=== PATIENT | female | born 1960 | race Hispanic/Latino ===

== ENCOUNTER 2017-10-31 20:54 | Emergency (ER) | payer OTHER ==
[2017-10-31 22:31] LABS: BASOPHILS % (AUTO) 0.8 % (0.0-5.0); EOSINOPHILS % (AUTO) 2.3 % (0.0-8.0); HEMATOCRIT 31.8 % (36-48); LYMPHOCYTES % (AUTO) 33.3 % (21.0-51.0); MEAN CORPUSCULAR HEMOGLOBIN 29.3 pg (27.0-33.0); MEAN CORPUSCULAR HGB CONC 34.7 g/dL (32.0-36.0); MEAN CORPUSCULAR VOLUME 84.7 fL (79-99); MONOCYTES % (AUTO) 8.3 % (3.0-13.0); NEUTROPHILS % (AUTO) 55.3 % (40.0-77.0); PLATELET COUNT (AUTO) 284 K/uL (130-400); RED BLOOD CELL COUNT(AUTO) 3.76 MIL/uL (4.00-5.50); RED CELL DISTRIBUTION WIDTH 13.4 % (11.0-15.5); WHITE BLOOD COUNT (AUTO) 8.7 K/uL (4.8-10.8)
[2017-10-31 22:37] LABS: CREATININE 0.6 mg/dL (0.5-1.5); POTASSIUM 3.7 mmol/L (3.5-5.1)
[2017-10-31 22:39] LABS: INR 0.98 (0.85-1.15); PARTIAL THROMBOPLASTIN TIME 28.4 SEC (26.3-35.5); PROTHROMBIN TIME 10.3 SEC (9.6-11.6)
[2017-10-31 22:42] LABS: ALBUMIN 3.8 g/dL (3.5-5.0); BILIRUBIN,TOTAL 0.2 mg/dL (0.2-1.0); TOTAL PROTEIN, SERUM 8.5 g/dL (6.0-8.3)
[2017-10-31] MEDS ORDERED: AZITHROMYCIN 250 MG TABLET PO ONE (23:28)
== END 2017-10-31 23:36 | disposition home or self-care (01) ==
LOC: EDH 20:54
DX: R04.2 Hemoptysis (principal); J84.10 Pulmonary fibrosis, unspecified; M34.9 Systemic sclerosis, unspecified; Z98.890 Other specified postprocedural states
CPT/HCPCS: 36415; 71046; 80053; 85025; 85610; 85730

== ENCOUNTER → 2018-01-11 | Outpatient (CLI) | payer OTHER | END | disposition home or self-care (01) | LOC: RAH 09:51 | PROVIDERS: ATTEND Family Medicine | DX: Z12.31 Encounter for screening mammogram for malignant neoplasm of breast (principal) | CPT/HCPCS: 77067 ==

== ENCOUNTER → 2019-02-01 | Outpatient (CLI) | payer OTHER | END | disposition home or self-care (01) | LOC: RAH 09:43 | PROVIDERS: ATTEND Family Medicine | DX: N63.20 Unspecified lump in the left breast, unspecified quadrant (principal) | CPT/HCPCS: 76641; 77066 ==

== ENCOUNTER → 2019-06-06 | Outpatient (CLI) | payer OTHER | END | disposition home or self-care (01) | LOC: RAH 10:12 | PROVIDERS: ATTEND Internal Medicine | DX: K21.0 Gastro-esophageal reflux disease with esophagitis (principal); K22.8 Other specified diseases of esophagus | CPT/HCPCS: 74240 ==

== ENCOUNTER → 2020-01-26 | Outpatient (CLI) | payer OTHER | END | disposition home or self-care (01) | LOC: RAH 13:07 | PROVIDERS: ATTEND Internal Medicine Critical Care Medicine | DX: J84.10 Pulmonary fibrosis, unspecified (principal); J47.9 Bronchiectasis, uncomplicated ==

== ENCOUNTER → 2020-02-06 | Outpatient (CLI) | payer OTHER | END | disposition home or self-care (01) | LOC: RAH 09:46 | PROVIDERS: ATTEND Obstetrics & Gynecology | DX: Z12.31 Encounter for screening mammogram for malignant neoplasm of breast (principal) | CPT/HCPCS: 77067 ==

== ENCOUNTER → 2020-02-22 | Outpatient (CLI) | payer OTHER | END | disposition home or self-care (01) | LOC: SHCH 12:16 | PROVIDERS: ATTEND Internal Medicine Cardiovascular Disease | DX: I27.23 Pulmonary hypertension due to lung diseases and hypoxia (principal); R06.9 Unspecified abnormalities of breathing | CPT/HCPCS: 93306; 93356 ==

== ENCOUNTER → 2020-03-29 | Outpatient (CLI) | payer OTHER ==
[~2020-03-29] MED LIST: REGADENOSON 0.4 MG/5 ML PF SYG IVP SCH
== END | disposition home or self-care (01) ==
LOC: SHCH 07:47
PROVIDERS: ATTEND Internal Medicine Cardiovascular Disease
DX: R93.1 Abnormal findings on diagnostic imaging of heart and coronary circulation (principal); R06.00 Dyspnea, unspecified; R53.83 Other fatigue; R94.31 Abnormal electrocardiogram [ECG] [EKG]
CPT/HCPCS: 78452; 93017; 96374; A9500 ×2; J2785

== ENCOUNTER → 2020-05-14 | Outpatient (CLI) | payer OTHER | END | disposition home or self-care (01) | LOC: RAH 09:33 | PROVIDERS: ATTEND Internal Medicine | DX: K21.9 Gastro-esophageal reflux disease without esophagitis (principal); K22.9 Disease of esophagus, unspecified; K44.9 Diaphragmatic hernia without obstruction or gangrene | CPT/HCPCS: 74240 ==

== ENCOUNTER → 2020-06-06 | Outpatient (CLI) | payer OTHER ==
[2020-06-08 16:10] LABS: ALPHA-1-ANTITRYPSIN 157 mg/dL (101-187)
== END | disposition home or self-care (01) ==
LOC: LAB 13:13
PROVIDERS: ATTEND Internal Medicine Critical Care Medicine
DX: J47.9 Bronchiectasis, uncomplicated (principal)
CPT/HCPCS: 36415; 82103; 82784; 82785; 82787; 86200; 86235; 86431; 86606; 87071; 87077; 87101; 87116; 87186; 87205; 87206; 87556

== ENCOUNTER → 2020-10-12 | Outpatient (CLI) | payer BC | END | disposition home or self-care (01) | LOC: LAB 11:55 | PROVIDERS: ATTEND Internal Medicine Critical Care Medicine | DX: J47.9 Bronchiectasis, uncomplicated (principal) | CPT/HCPCS: 87071; 87077; 87186; 87205 ==

== ENCOUNTER → 2020-10-30 | Outpatient (CLI) | payer BC | END | disposition home or self-care (01) | LOC: RAH 14:27 | PROVIDERS: ATTEND Family Medicine | DX: N64.4 Mastodynia (principal); R92.8 Other abnormal and inconclusive findings on diagnostic imaging of breast | CPT/HCPCS: 76641 ==

== ENCOUNTER → 2021-01-23 | Outpatient (CLI) | payer BC | END | disposition home or self-care (01) | LOC: RAH 13:55 | PROVIDERS: ATTEND Internal Medicine Critical Care Medicine | DX: R04.2 Hemoptysis (principal); I31.3 Pericardial effusion (noninflammatory); I51.7 Cardiomegaly; K22.8 Other specified diseases of esophagus; J47.9 Bronchiectasis, uncomplicated; J84.10 Pulmonary fibrosis, unspecified | CPT/HCPCS: 71250; 87116; 87206 ==

== ENCOUNTER → 2021-12-06 | Outpatient (CLI) | payer BC | END | disposition home or self-care (01) | LOC: SHCH 13:46 | PROVIDERS: ATTEND Internal Medicine Cardiovascular Disease | DX: I36.1 Nonrheumatic tricuspid (valve) insufficiency (principal); I27.20 Pulmonary hypertension, unspecified; I11.9 Hypertensive heart disease without heart failure | CPT/HCPCS: 93306 ==

== ENCOUNTER → 2022-05-22 | Outpatient (CLI) | payer BC | END | disposition home or self-care (01) | LOC: RAH 10:26 | PROVIDERS: ATTEND Family Medicine | DX: N64.4 Mastodynia (principal); R59.0 Localized enlarged lymph nodes | CPT/HCPCS: 76642 ==

== ENCOUNTER → 2022-08-18 | Outpatient (CLI) | payer BC | END | disposition home or self-care (01) | LOC: LAB 12:27 | PROVIDERS: ATTEND Internal Medicine Critical Care Medicine | DX: R04.2 Hemoptysis (principal) | CPT/HCPCS: 87071; 87077; 87116; 87186; 87205; 87206 ==

== ENCOUNTER → 2022-11-07 | Outpatient (CLI) | payer BC | END | disposition home or self-care (01) | LOC: RAH 13:36 | PROVIDERS: ATTEND Family Medicine | DX: N64.4 Mastodynia (principal) | CPT/HCPCS: 77066 ==

== ENCOUNTER → 2022-11-10 | Outpatient (CLI) | payer BC | END | disposition home or self-care (01) | LOC: RAH 13:18 | PROVIDERS: ATTEND Internal Medicine Critical Care Medicine | DX: J47.9 Bronchiectasis, uncomplicated (principal); J84.10 Pulmonary fibrosis, unspecified; M81.0 Age-related osteoporosis without current pathological fracture | CPT/HCPCS: 93306 ==

== ENCOUNTER → 2023-04-27 | Outpatient (CLI) | payer BC | END | disposition home or self-care (01) | LOC: LAB 14:01 | PROVIDERS: ATTEND Internal Medicine Critical Care Medicine | DX: J47.1 Bronchiectasis with (acute) exacerbation (principal) | CPT/HCPCS: 87071; 87205 ==

== ENCOUNTER → 2023-04-28 | Outpatient (CLI) | payer BC | END | disposition home or self-care (01) | LOC: RAH 10:42 | PROVIDERS: ATTEND Family Medicine | DX: J47.9 Bronchiectasis, uncomplicated (principal); R06.09 Other forms of dyspnea; J84.10 Pulmonary fibrosis, unspecified; K22.89 Other specified disease of esophagus | CPT/HCPCS: 71250 ==

== ENCOUNTER → 2023-05-22 | Outpatient (CLI) | payer BC | END | disposition home or self-care (01) | LOC: RAH 11:01 | PROVIDERS: ATTEND Family Medicine | DX: S22.000A Wedge compression fracture of unspecified thoracic vertebra, initial encounter for closed fracture (principal); M47.814 Spondylosis without myelopathy or radiculopathy, thoracic region; M40.294 Other kyphosis, thoracic region; X58.XXXA Exposure to other specified factors, initial encounter; Y93.89 Activity, other specified; Y92.89 Other specified places as the place of occurrence of the external cause; Y99.8 Other external cause status | CPT/HCPCS: 72128 ==

== ENCOUNTER → 2023-09-23 | Outpatient (CLI) | payer BC | END | disposition home or self-care (01) | LOC: LAB 11:22 | PROVIDERS: ATTEND Internal Medicine Cardiovascular Disease | DX: M34.1 CR(E)ST syndrome (principal) | CPT/HCPCS: 36415; 83880 ==

== ENCOUNTER → 2023-10-29 | Outpatient (CLI) | payer BC | END | disposition home or self-care (01) | LOC: SHCH 14:47 | PROVIDERS: ATTEND Internal Medicine Cardiovascular Disease | DX: I31.39 Other pericardial effusion (noninflammatory) (principal); M34.1 CR(E)ST syndrome | CPT/HCPCS: 93306 ==

== ENCOUNTER 2025-06-03 23:27 | Emergency (ER) | payer MEDICARE ==
[~2025-06-03] VITALS: Ht 144.8 cm; Wt 45.4 kg
--- NOTE | 2025-06-03 23:46 | ERN ---
ED Note History of Present Illness Stated Complaint: CP Chief Complaint: Chest Pain Time Seen by MD: 23:29 Dictation: Patient comes in with complaint of chest tightness and pressure for the last four days that has been constant. Patient has history of pulmonary fibrosis. No CAD. No fever no increased sputum production. She wears 3-3-1/2 L of O2 nasal cannula at baseline. Reports increasing dyspnea and tightness in chest. Last time she had steroids she believes it was more than seven months ago. Allergies: Coded Allergies: No Known Drug Allergies (Unverified Allergy, Unknown, 03/27/20) Home Meds Active Scripts Methylprednisolone (Medrol) 4 Mg Tab.ds.pk, 1 TAB PO AD for 6 Days, #21 TAB 0 Refills 6 on day 1 then reduce by one tablet daily until gone Prov:SERGEI HEATH MD 06/04/25 Albuterol Sulfate (Albuterol Sulfate) 2.5 Mg/3 Ml (0.083 %) Vial.neb, 1 VIAL NEB Q4HPRN PRN for wheezing, #150 ML 0 Refills Prov:SERGEI HEATH MD 06/04/25 Past Medical History Past Medical History: Other Additional Past Medical Hx: PULMONARY FIBROSIS . [employer]IST[employer]IAN Surgical History: None Review of System Dictation Ten systems reviewed and negative except as noted in HPI Initial Vital Sign VS Vital Signs Date Time Temp Pulse Resp B/P (MAP) Pulse Ox O2 Delivery O2 Flow Rate FiO2 06/03/25 23:28 97.5 104 24 196/103 94 Nasal Cannula 3.0 06/04/25 00:28 100 Physical Exam Dictation GEN: non toxic, NAD HEENT: atrumatic, PERRL, EOMI, conjunctivae normal NECK: Soft supple nontender Heart RRR, no murmurs Chest: No deformity Lungs: Fine crackles and squeaks. No significant accessory muscle use. Good air movement. Ab: Soft nondistended nontender Back: No midline step-offs. No gross deformity. No CVA tenderness : m/s: Moving all four extremities. No gross deformity Neuro: CN 2-12 intact. Moving all four extremities. Psych: Cooperative Results (Laboratory/Radiology) Laboratory/Radiology Laboratory Tests Test 06/03/25 00:07 06/03/25 23:36 White Blood Count 8.1 K/uL (4.8-10.8) Red Blood Count 3.39 MIL/uL (4.00-5.50) L Hemoglobin 10.2 g/dL (12.0-16.0) L Hematocrit 30.4 % (36-48) L Mean Corpuscular Volume 89.7 fL (79-99) Mean Corpuscular Hemoglobin 30.1 pg (27.0-33.0) Mean Corpuscular Hemoglobin Concent 33.6 g/dL (32.0-36.0) Red Cell Distribution Width 11.7 % (11.0-15.5) Platelet Count 182 K/uL (130-400) Mean Platelet Volume 10.4 fL (7.5-10.5) Immature Granulocyte % (Auto) 0.5 % (0-1) Neutrophils (%) (Auto) 70.9 % (40.0-77.0) Lymphocytes (%) (Auto) 17.4 % (21.0-51.0) L Monocytes (%) (Auto) 9.9 % (3.0-13.0) Eosinophils (%) (Auto) 0.7 % (0.0-8.0) Basophils (%) (Auto) 0.6 % (0.0-5.0) Neutrophils # (Auto) 5.7 K/uL (1.8-7.7) Lymphocytes # (Auto) 1.4 K/uL (1.0-4.8) Monocytes # (Auto) 0.8 K/uL (0.1-1.0) Eosinophils # (Auto) 0.06 K/uL (0.00-0.70) Basophils # (Auto) 0.05 K/uL (0.00-0.20) Absolute Immature Granulocyte (auto 0.04 K/uL (0-1) Nucleated Red Blood Cells 0.0 % (0.0-0.19) Sodium Level 129 mmol/L (136-145) L Potassium Level 3.9 mmol/L (3.5-5.1) Chloride Level 88 mmol/L (101-111) *L Carbon Dioxide Level 37 mmol/L (21-32) H Blood Urea Nitrogen 11 mg/dL (7-18) Creatinine 0.4 mg/dL (0.5-1.0) L Glomerular Filtration Rate Calc 109 mL/min (>90) Random Glucose 97 mg/dL (70-105) Total Calcium 8.7 mg/dL (8.5-10.1) Total Creatine Kinase 241 U/L (21-232) H Troponin I High Sensitivity 12 ng/L (4-50) Procalcitonin < 0.05 ng/mL (0.05-0.5) L Influenza Type A Antigen Negative For Type A Influenza Type B Antigen Negative For Type B SARS-CoV-2, RNA, NAAT NEGATIVE SARS CoV-2 Group A Streptococcus Rapid negative (NEGATIVE) Urine Color COLORLESS (YELLOW) Urine Appearance CLEAR (CLEAR) Urine pH 8.0 (5.0-8.0) Urine Specific [place] 1.005 (1.001-1.031) Urine Protein NEGATIVE mg/dL (NEGATIVE) Urine Glucose (UA) NEGATIVE mg/dL (NEGATIVE) Urine Ketones NEGATIVE mg/dL (NEGATIVE) Urine Occult Blood NEGATIVE (NEGATIVE) Urine Nitrate NEGATIVE (NEGATIVE) Urine Bilirubin NEGATIVE mg/dL (NEGATIVE) Urine Urobilinogen 0.2 mg/dL (0.2-1.0) Urine Leukocyte Esterase NEGATIVE Frederic/uL Patient has some she X-RAY Comment: EXAM: X-Ray Chest, 1 view. CLINICAL HISTORY: Chest pain. COMPARISON: None. FINDINGS: Hyperinflated lung stock. Fibrobronchiectatic changes in the bilateral lung stock, more pronounced in the bilateral lower zones, with architectural distortion and coarsened reticular thickening. Blunting of the bilateral costophrenic angles could represent small pleural effusions versus pleural thickening. The cardiomediastinal silhouette is within normal limits. Calcification of the aortic knuckle. No acute osseous abnormality. Degenerative osseous changes. IMPRESSION: 1. Fibrobronchiectatic changes in bilateral lung stock, more pronounced in lower zones, with architectural distortion and coarsened reticular thickening. This could represent sequelae of interstitial lung disease. Recommend HRCT chest for further evaluation. 2. Possible small bilateral pleural effusions versus pleural thickening, evidenced by blunting of the bilateral costophrenic angles. 3. Hyperinflated lung stock. /[facility] DICTATED BY: FRANCISCO J WEST Jr., MD DATE: 06/04/25148 ELECTRONICALLY SIGNED BY: FRANCISCO J WEST Jr., MD DATE: 06/04/25148 ED Course ED Course Orders Procedure Category Date Status Time Vital Signs Per CPOE 06/03/25 Transmitted Routine 23:34 Chest 1vw RAD 06/03/25 Resulted 23:34 12 Lead Ekg Tracing- EKG 06/03/25 Complete Technical 23:34 Oxygen By Nc/Pulse Ox CPOE 06/03/25 Transmitted 23:34 Maintain Iv CPOE 06/03/25 Transmitted 23:34 Iv Insertion CPOE 06/03/25 Transmitted 23:34 Cardiac Monitoring CPOE 06/03/25 Transmitted 23:34 Pulse Oximetry With CPOE 06/03/25 Transmitted Vs And Prn 23:34 Cbc With Differential LAB 06/03/25 Complete 23:34 Activity: Br W/Brp CPOE 06/03/25 Transmitted With Assist 23:34 Creatine Kinase, Total LAB 06/03/25 Complete 23:34 Troponin I High LAB 06/03/25 Complete Sensitivity 23:34 Urinalysis Profile LAB 06/03/25 Complete 23:34 Basic Metabolic Panel LAB 06/03/25 Complete 23:34 Procalcitonin LAB 06/03/25 Complete 23:42 Influenza Type A & B, LAB 06/03/25 Complete Rapid 23:42 Covid Rna Naat LAB 06/03/25 Complete 23:42 Methylprednisolone PHA 06/04/25 Complete Succ 125mg (Solu-Medr 00:00 Albuterol 0.083% PHA 06/04/25 Complete 2.5mg/3ml (Proventil 00:00 Ipratropium 0.5 PHA 06/04/25 Complete Mg/2.5 Ml Inh 00:00 Rapid (Group A Strep) LAB 06/03/25 Complete 23:56 Current Medications Medications (Trade) Dose Ordered Sig/Estefania Route PRN Reason Start Time Stop Time Status Last Admin Dose Admin Albuterol Sulfate (Proventil 0.083% 2.5mg/3ml) 5 mg ONCE ONCE IH 06/04/25 00:00 06/04/25 00:01 DC 06/04/25 00:18 Ipratropium [place] (AtrovENT UD) 0.5 mg ONCE ONCE IH 06/04/25 00:00 06/04/25 00:01 DC 06/04/25 00:18 Methylprednisolone Sodium Succinate (Solu-medROL 125MG) 125 mg ONCE ONCE IVP 06/04/25 00:00 06/04/25 00:01 DC 06/04/25 00:17 Vital Signs Date Time Temp Pulse Resp B/P (MAP) Pulse Ox O2 Delivery O2 Flow Rate FiO2 06/04/25 01:34 98.2 90 18 148/83 98 Nasal Cannula* 3 32 06/04/25 00:28 88 20 160/87 100 Aerosol Mask+ 15 100 06/04/25 00:19 63 18 06/03/25 23:28 97.5 104 24 196/103 94 Nasal Cannula 3.0 Medical Decision Making MDM Multiple differentials considered. We will check labs troponin. Patient has had symptoms consistently for the last four days. Likely pulmonary in nature. We will do nebs and steroids here. Patient feeling much improved after nebs and looks quite comfortable. Patient states she has salmeterol, long-acting beta agonist for inhalers but does not have albuterol Patient will be discharged on Medrol Dosepak and albuterol nebules. No pneumonia. No fever no white count. Normal procalcitonin. Sent hold off on antibiotics. Procedure Procedure Dictation: EKG Sinus rhythm 91 OH 164 QRS of 86 QTC of 436 normal axis QRS complexes narrow early R-wave transition STT wave segments otherwise pretty unremarkable. Interpretation essentially normal EKG DX & DISP Disposition: Discharge Departure Impression: Primary Impression: Pulmonary fibrosis Additional Impression: Dyspnea Condition: Improved Scripts Methylprednisolone (Medrol) 4 Mg Tab.ds.pk 1 TAB PO AD for 6 Days, #21 TAB 0 Refills 6 on day 1 then reduce by one tablet daily until gone Prov: SERGEI HEATH MD 06/04/25 Albuterol Sulfate (Albuterol Sulfate) 2.5 Mg/3 Ml (0.083 %) Vial.neb 1 VIAL NEB Q4HPRN PRN for wheezing, #150 ML 0 Refills Prov: SERGEI HEATH MD 06/04/25 Additional Instructions: albuterol nebulizer every 4 hours as needed for difficulty breathing Steroids as prescribed Return for any worsening symptoms, difficulty breathing or any other concerns Referrals: MILAGRO ARROYO MD (PCP) SERGEI HEATH MD Jun 03, 2025 23:46
--- NOTE | 2025-06-03 23:49 | EKG ---
[facility] Test Date: 2025-06-03 Test Time: 23:42:50 Pat Name: PEDRO KIRAN Department: [facility] Room: Gender: F [employer] Fitter: [id number] : 1960 Requested By: SERGEI HEATH Order Number: [id number] Reading MD: Mckenzie Augustine Measurements Intervals Magazine Rate: 91 P: 43 UT: 164 QRS: 25 QRSD: 86 T: 56 QT: 354 QTc: 436 Interpretive Statements Sinus rhythm Probable left atrial enlargement Compared to ECG 06/16/2016 07:47:06 Incomplete right bundle-branch block no longer present Left anterior fascicular block no longer present T-wave abnormality no longer present Electronically Signed On 06-04-2025 16:29:24 CDT by Mckenzie Augustine Please click the below link to view image of tracing.
[2025-06-03 23:58] LABS: ADD UA MICROSCOPIC NO; APPEARANCE,URINE CLEAR (CLEAR); GLUCOSE, URINE (UA) NEGATIVE (NEGATIVE); LEUKOCYTE ESTERASE ,URINE NEGATIVE Leu/uL (NEGATIVE); NITRATE,URINE NEGATIVE (NEGATIVE); OCCULT BLOOD,URINE NEGATIVE (NEGATIVE)
[2025-06-04] MEDS: ALBUTEROL 0.083% 2.5 MG/3 ML INH IH ONE (00:18)
[2025-06-04 00:19] VITALS: PULSE 63; RESP 18
[2025-06-04 00:20] LABS: IMMATURE GRANULOCYTE ABSOLUTE 0.04 K/uL (0-1); NUCLEATED RED BLOOD CELLS 0.0 % (0.0-0.19); PLATELET COUNT (AUTO) 182 K/uL (130-400); RED BLOOD CELL COUNT(AUTO) 3.39 MIL/uL (4.00-5.50); RED CELL DISTRIBUTION WIDTH 11.7 % (11.0-15.5); WHITE BLOOD COUNT (AUTO) 8.1 K/uL (4.8-10.8)
[2025-06-04 00:32] LABS: SARS-CoV-2, RNA, NAAT NEGATIVE SARS CoV-2 (NEGATIVE)
[2025-06-04 00:35] LABS: CREATINE KINASE, TOTAL 241.0 U/L (21-232); CREATININE 0.4 mg/dL (0.5-1.0); GLOMERULAR FILTR. RATE CALC 109.0 mL/min (>90); GLUCOSE,RANDOM 97.0 mg/dL (70-105); SODIUM SERUM 129.0 mmol/L (136-145); UREA NITROGEN, BLOOD 11.0 mg/dL (7-18)
[2025-06-04 00:37] LABS: INFLUENZA TYPE A Negative For Type A (NEGATIVE); INFLUENZA TYPE B Negative For Type B (NEGATIVE)
--- NOTE | 2025-06-04 00:50 | HMCIMG ---
EXAM: X-Ray Chest, 1 view. CLINICAL HISTORY: Chest pain. COMPARISON: None. FINDINGS: Hyperinflated lung stock. Fibrobronchiectatic changes in the bilateral lung stock, more pronounced in the bilateral lower zones, with architectural distortion and coarsened reticular thickening. Blunting of the bilateral costophrenic angles could represent small pleural effusions versus pleural thickening. The cardiomediastinal silhouette is within normal limits. Calcification of the aortic knuckle. No acute osseous abnormality. Degenerative osseous changes. IMPRESSION: 1. Fibrobronchiectatic changes in bilateral lung stock, more pronounced in lower zones, with architectural distortion and coarsened reticular thickening. This could represent sequelae of interstitial lung disease. Recommend HRCT chest for further evaluation. 2. Possible small bilateral pleural effusions versus pleural thickening, evidenced by blunting of the bilateral costophrenic angles. 3. Hyperinflated lung stock. /Ismael
[2025-06-04] MEDS ORDERED: ALBU2.5V2 NEB (01:16)
[2025-06-04] MEDS ORDERED: METH4TAB3 PO (01:16)
[2025-06-04 01:34] VITALS: BP 148/83; PULSE 90; RESP 18; TEMP 98.3; O2SAT 98
== END 2025-06-04 01:35 | disposition home or self-care (01) ==
LOC: EDH 23:27
DX: J84.10 Pulmonary fibrosis, unspecified (principal); R06.00 Dyspnea, unspecified; Z20.822 Contact with and (suspected) exposure to COVID-19
CPT/HCPCS: 99285; 71045; 87635; 84484; 82550; 80048; 85025; 87880; 87804 ×2; 81003; 36415; 93005; 84145; 96374; 94640; J2919